=== PATIENT | female | born 1970 | race Caucasian/White ===

== ENCOUNTER → 2016-05-20 | Emergency (ER) | payer MEDICAID, OTHER ==
[~2016-05-20] VITALS: Ht 157.5 cm; Wt 87.5 kg
[~2016-05-20] MED LIST: ATEN-51 PO; CALC-67 PO; GLUC1CAP48 PO; HYDR-3498 PO; HYDR-762; IBUP800T25 PO; LOPE2CAP PO; MULT-88 PO; NAPR-260 PO; NAPR-688 PO; OMEG-135 PO; ULT50 PO; htn meds
[2016-05-20 02:51] VITALS: Ht 157.5 cm; Wt 87.5 kg
[2016-05-20 03:46] VITALS: BP 141/90; PULSE 100; RESP 18; TEMP 99.1
--- NOTE | 2016-05-20 03:52 | ERD ---
ER Documentation Chief Complaint Date/Time DATE: 05/20/16 TIME: 03:44 Chief Complaint HTN,cough,WADE HPI 45-year-old female who presents the emergency room with multiple complaints including hypertension elevated heart rate cough and headaches. The patient states that this is because of methane gas in the [place] area. The patient notes approximately 1-1/2 weeks of viral syndrome including some rhinorrhea, dry nonproductive cough. The cough is persistent. Her blood pressure is slightly elevated and she states that "my resting heart rate is elevated because of the methane gas, benzoin and toluene in the environment ". The patient denies any chest pain, headache is mild, gradual onset and frontal. ROS All systems reviewed and are negative except as per history of present illness. Medications Home Meds Active Scripts Naproxen* (Naproxen*) 500 Mg Tablet, 500 MG PO BID Y for PAIN for 7 Days, TAB Prov:JAY PALMER 05/31/15 Loperamide Hcl* (Imodium*) 2 Mg Capsule, 2 MG PO .WITH EACH DIARRHEA Y for DIARRHEA for 3 Days, CAP MAX 16 mg/day Prov:JAY PALMER 05/31/15 Naproxen* (Naprosyn*) 500 Mg Tablet, 500 MG PO BID Y for PAIN AND/OR INFLAMMATION, #30 TAB Prov:AGAPITO MONTANO PA-C 10/27/14 Hydrocodone Bit-Acetaminophen* ([place]*) 5-325 Mg Tab, 1 TAB PO Q6 Y for PAIN, # 15 TAB Prov:AGAPTIO MONTANO PA-C 10/27/14 Ibuprofen* (Motrin*) 800 Mg Tab, 800 MG PO Q8 Y for PAIN, #30 TAB Prov:CALOS VARELA 10/09/14 Tramadol HCl (Tramadol HCl) 50 Mg Tab, 50 MG PO Q6 Y for PAIN, #10 TAB Prov:CALOS VARELA 10/09/14 Reported Medications Gluc 2KCL/Chondr/Audie Hy/Hy Ac (GLUCOSAMINE & CHONDROITIN CAP) 1 Each Capsule, 1 EACH PO 01/02/14 Fish Oil* (Fish Oil*) 1,000 Mg Cap, 1000 MG PO DAILY, CAP 01/02/14 Calcium Carbonate/Vitamin D3* (Os-Link 500+D*) 1 Tab Tablet, 1 TAB PO DAILY, TAB 01/02/14 Multivits W-Ca,Fe,Other Min (Women's Daily Formula) 1 Tab Tablet, 1 TAB PO DAILY 01/02/14 Atenolol* (Atenolol*) 25 Mg Tablet, 25 MG PO DAILY, TAB 01/02/14 Hydrocodone Bit-Acetaminophen* ([place]*) 1 Tab Tablet 11/27/12 [htn meds] No Conflict Check 11/18/12 Allergies Allergies: Coded Allergies: No Known Allergy (Unverified , 10/09/14) PMhx/Soc History of Surgery: Yes () Anesthesia Reaction: No Hx Neurological Disorder: No Hx Respiratory Disorders: No Hx Cardiac Disorders: Yes (HTN) Hx Psychiatric Problems: No Hx Miscellaneous Medical Probl: Yes (GASTRITIS, BACK PAIN) Hx Alcohol Use: Yes (rarely) Hx Substance Use: No Hx Tobacco Use: Yes Smoking Status: Former smoker FmHx Family History: No diabetes Physical Exam Vitals Vital Signs Date Time Temp Pulse Resp B/P Pulse Ox O2 Delivery O2 Flow Rate FiO2 05/20/16 02:51 99.1 103 18 161/97 98 Physical Exam General: Well developed, well nourished, no acute distress Head: Normocephalic, atraumatic. Eyes: Pupils equally reactive, EOM intact ENT: Moist mucous membranes Neck: Supple, no lymphadenopathy Respiratory: Lungs clear bilaterally, no distress Cardiovascular: RRR, no murmurs, rubs, or gallops Abdominal: Soft, non-tender, non-distended, no peritoneal signs : Deferred MSK: No edema, no unilateral swelling, 5/5 strength Neurologic: Alert and oriented, moving all extremities, normal speech, no focal weakness, no cerebellar signs Skin: No rash Psych: Normal mood Procedures/MDM Patient's blood pressure was elevated (>120/80) but appears stable without evidence of hypertensive emergency or urgency. The patient was counseled about the risks of hypertension and urged to pursue outpatient monitoring and therapy within a week with their primary care physician. The patient may have a mild viral process however no evidence of pneumonia. The patient is clear lung sounds, no respiratory distress and the cough is dry and nonproductive. No fevers. No indication for chest x-ray or antibiotic. The patient did describe occasional palpitations EKG: I reviewed and interpreted a 12-lead EKG. Rhythm: Normal sinus rhythm Ectopy: None Intervals: No abnormalities ST segments: No elevations or depressions T waves: No contiguous inversions At this time I do not believe that the patient has an acute medical condition. I offered symptom control including inhaler but the patient refused. The patient blood pressure is slightly elevated needs to be followed up as an outpatient. I am concerned that the patient's symptoms may be related to a shared delusion with her partner and her about the methane gas in [place]. I strongly recommended primary care follow-up and outpatient resources were provided to the patient. The symptoms seem to be chronic in subacute and the patient does not have an acute medical depression currently. The patient is safe for discharge. Departure Diagnosis: Primary Impression: Viral illness Additional Impressions: Cough Palpitations Condition: Stable Patient Instructions: Hypertension, To Be Confirmed, Viral Syndrome (Adult) Referrals: [facility] YOU HAVE RECEIVED A MEDICAL SCREENING EXAM AND THE RESULTS INDICATE THAT YOU DO NOT HAVE A CONDITION THAT REQUIRES URGENT TREATMENT IN THE EMERGENCY DEPARTMENT. FURTHER EVALUATION AND TREATMENT OF YOUR CONDITION CAN WAIT UNTIL YOU ARE SEEN IN YOUR DOCTORS OFFICE WITHIN THE NEXT 1-2 DAYS. IT IS YOUR RESPONSIBILITY TO MAKE AN APPOINTMENT FOR [facility]. IF YOU HAVE A PRIMARY DOCTOR --you should call your primary doctor and schedule an appointment IF YOU DO NOT HAVE A PRIMARY DOCTOR YOU CAN CALL OUR PHYSICIAN REFERRAL HOTLINE AT IF YOU CAN NOT AFFORD TO SEE A PHYSICIAN YOU CAN CHOSE FROM THE FOLLOWING [facility] [address] [facility]. [facility] [address] [facility] [facility] [facility] [facility] [address] [facility] [facility] [address] [facility] [facility] [address] [facility]. [facility]. [address] [facility] YOU HAVE RECEIVED A MEDICAL SCREENING EXAM AND THE RESULTS INDICATE THAT YOU DO NOT HAVE A CONDITION THAT REQUIRES URGENT TREATMENT IN THE EMERGENCY DEPARTMENT. FURTHER EVALUATION AND TREATMENT OF YOUR CONDITION CAN WAIT UNTIL YOU ARE SEEN IN YOUR DOCTORS OFFICE WITHIN THE NEXT 1-2 DAYS. IT IS YOUR RESPONSIBILITY TO MAKE AN APPOINTMENT FOR [facility] CARE. IF YOU HAVE A PRIMARY DOCTOR --you should call your primary doctor and schedule and appointment IF YOU DO NOT HAVE A PRIMARY DOCTOR YOU CAN CALL OUR PHYSICIAN REFERRAL HOTLINE AT . IF YOU CAN NOT AFFORD TO SEE A PHYSICIAN YOU CAN CHOSE FROM THE FOLLOWING [facility] INSTITUTIONS: [facility] [address] [place] [address] [facility] [address] [place] [address] [facility] [address] [place] [address] Additional Instructions: Call your primary care doctor TOMORROW for an appointment during the next 1 WEEK.Tell the medical secretary that you were referred from this facility.See the doctor sooner or return here if your condition worsens before your appointment time. RICO CUMMINGS MD May 20, 2016 03:52
== END | disposition home or self-care (01) ==
LOC: E/R 02:45
DX: B34.9 Viral infection, unspecified (principal); R40.2252 Coma scale, best verbal response, oriented, at arrival to emergency department; R00.2 Palpitations; I10 Essential (primary) hypertension; R40.2362 Coma scale, best motor response, obeys commands, at arrival to emergency department; R40.2142 Coma scale, eyes open, spontaneous, at arrival to emergency department; Z87.891 Personal history of nicotine dependence
CPT/HCPCS: 93005; Z7502

== ENCOUNTER 2017-05-09 00:38 | Emergency (ER) | END 2017-05-09 05:27 | disposition home or self-care (01) ==

== ENCOUNTER 2017-08-31 00:33 | Emergency (ER) | END 2017-08-31 04:40 | disposition home or self-care (01) ==

== ENCOUNTER 2018-05-18 16:49 | Emergency (ER) | payer OTHER ==
[~2018-05-18] VITALS: Ht 165.1 cm; Wt 88.5 kg
[~2018-05-18 16:49] MED LIST changes: +HYDR-3980 PO; +HYDR-4011 PO; +IBUP-1542 PO; -IBUP800T25 PO; +IBUP800T48 PO; +MECL12.574 PO; -NAPR-260 PO; +NAPR-985 PO; +TRAM50TA2 PO; -ULT50 PO
[2018-05-18 16:54] VITALS: Ht 165.1 cm; Wt 88.5 kg
[2018-05-18] MEDS ORDERED: METO-319 PO (18:39)
[2018-05-18] MEDS ORDERED: TRAZ-150 PO (18:39)
[2018-05-18] MEDS ORDERED: AMLO-147 PO (18:40)
[2018-05-18] MEDS ORDERED: DULO30CA47 PO (18:40)
[2018-05-18] MEDS ORDERED: ALBU18HF INHALATION (18:41)
[2018-05-18] MEDS ORDERED: MELO15TA30 PO (18:41)
[2018-05-18] MEDS ORDERED: FLUT16SP17 NASAL (18:42)
[2018-05-18] MEDS ORDERED: CYCL10TA7 PO (18:42)
[2018-05-18] MEDS ORDERED: TRAM50TA PO (18:43)
[2018-05-18] MEDS ORDERED: MECL12.574 PO (18:43)
[2018-05-18] MEDS ORDERED: SOD CHLORIDE 0.9% 1,000 ML IV STA (19:50)
[2018-05-18] MEDS ORDERED: ONDANSETRON 4 MG INJ IV STA (19:50)
[2018-05-18] MEDS ORDERED: MECLIZINE 12.5 MG TAB PO ONE (20:00)
--- NOTE | 2018-05-18 22:27 | ERD ---
ER Documentation Chief Complaint Chief Complaint BIT LIP TODAY. DOES NOT REMEMBER INCIDENT. FAMILY STATES RICCO TEJADA This is a 47-year-old female who presents to the emergency department after she indicates she had a sudden onset of dizziness. The patient indicates she is been undergoing a significant amount of stress and has not been sleeping for several days. Contrary to the triage note the patient did not experience any seizure activity. She stated she felt lightheaded and dizzy at and had an episode where she almost passed out. She stated at that time she bit her lip and grasped a piece of furniture that prevented her from falling over. She immediately sat down and her symptoms improved. She denied headache. She had no fevers or shaking or chills. She denies any neck pain. The patient indicates that she has for several months been having a nonproductive cough she lives in [place] where she stated there was toxic fumes which she ingested. Since that time she has been utilizing an inhaler. She has no hemoptysis no hematemesis no melanotic stools ROS All systems reviewed and are negative except as per history of present illness. Medications Home Meds Active Scripts Hydrocodone/Acetaminophen ([place] 5-325 Tablet) 1 Each Tablet, 1 TAB PO Q6H PRN for SEVERE PAIN LEVEL 7-10, #20 TAB Prov:GERONIMO CORRAL ACID ETCH OPERATOR 05/09/17 Ibuprofen* (Motrin*) 600 Mg Tab, 600 MG PO Q6H PRN for PAIN AND OR ELEVATED TEMP, #30 TAB Prov:GERONIMO CORRAL ACID ETCH OPERATOR 05/09/17 Reported Medications Meclizine Hcl* (Antivert*) 12.5 Mg Tab, 12.5 MG PO NEEDED, #30 TAB 05/18/18 Tramadol Hcl* (Ultram*) 50 Mg Tablet, 50 MG PO NEEDED PRN for PAIN, TAB 05/18/18 Cyclobenzaprine Hcl* (Cyclobenzaprine Hcl*) 10 Mg Tablet, 10 MG PO TID PRN for NEEDED, #90 TAB 05/18/18 Fluticasone Propionate* (Fluticasone Propionate* Nasal) 50 Mcg/[place] - 16 Gm [place].susp, 1 SPRAY NASAL DAILY, #1 BOTTLE TO EACH NOSTRIL 05/18/18 Albuterol Sulfate* (Ventolin HFA*) 18 Gm Hfa.aer.ad, 2 PUFF INHALATION Q4H, #1 INHALER 05/18/18 Meloxicam* (Mobic*) 15 Mg Tablet, 15 MG PO DAILY PRN for NEEDED, #30 TAB 05/18/18 Amlodipine Besylate* (Amlodipine Besylate*) 10 Mg Tablet, 10 MG PO DAILY, #30 TAB 05/18/18 Duloxetine Hcl* (Duloxetine Hcl*) 30 Mg Capsule.dr, 30 MG PO QPM, #30 CAP 05/18/18 Trazodone Hcl* (Desyrel*) 100 Mg Tab, 100 MG PO QAM, #30 TAB 05/18/18 Metoprolol Succinate* (Toprol XL*) 50 Mg Tab.er.24h, 50 MG PO DAILY, #30 TAB 05/18/18 Discontinued Reported Medications Gluc 2KCL/Chondr/Audie Hy/Hy Ac (GLUCOSAMINE & CHONDROITIN CAP) 1 Each Capsule, 1 EACH PO 01/02/14 Fish Oil* (Fish Oil*) 1,000 Mg Cap, 1000 MG PO DAILY, CAP 01/02/14 Calcium Carbonate/Vitamin D3* (Os-Link 500+D*) 1 Tab Tablet, 1 TAB PO DAILY, TAB 01/02/14 Multivits W-Ca,Fe,Other Min (Women's Daily Formula) 1 Tab Tablet, 1 TAB PO DAILY 01/02/14 Atenolol* (Atenolol*) 25 Mg Tablet, 25 MG PO DAILY, TAB 01/02/14 Hydrocodone Bit-Acetaminophen* ([place]*) 1 Tab Tablet 11/27/12 [htn meds] No Conflict Check 11/18/12 Discontinued Scripts Hydrocodone/Acetaminophen ([place] 10-325 Tablet) 1 Each Tablet, 1 TAB PO Q6H PRN for PAIN, #20 TAB Prov:CHANEL PUGA S. 08/31/17 Meclizine Hcl* (Antivert*) 12.5 Mg Tab, 12.5 MG PO Q6H PRN for DIZZINESS, #20 TAB Prov:CHANEL PUGA S. 08/31/17 Naproxen* (Naproxen*) 500 Mg Tablet, 500 MG PO BID PRN for PAIN for 7 Days, TAB Prov:JAY PALMER 05/31/15 Loperamide Hcl* (Imodium*) 2 Mg Capsule, 2 MG PO .WITH EACH DIARRHEA PRN for DIARRHEA for 3 Days, CAP MAX 16 mg/day Prov:JAY PALMER 05/31/15 Naproxen* (Naprosyn*) 500 Mg Tablet, 500 MG PO BID PRN for PAIN AND/OR INFLAMMATION, #30 TAB Prov:AGAPIOT MONTANO PA-C 10/27/14 Hydrocodone Bit-Acetaminophen* ([place]*) 5-325 Mg Tab, 1 TAB PO Q6 PRN for PAIN, #15 TAB Prov:AGAPITO MONTANO PA-C 10/27/14 Ibuprofen* (Motrin*) 800 Mg Tab, 800 MG PO Q8 PRN for PAIN, #30 TAB Prov:CALOS VARELA 10/09/14 Tramadol HCl (Tramadol HCl) 50 Mg Tab, 50 MG PO Q6 PRN for PAIN, #10 TAB Prov:CALOS VARELA 10/09/14 Allergies Allergies: Coded Allergies: No Known Allergy (Unverified , 05/18/18) PMhx/Soc History of Surgery: Yes ( X 1) Anesthesia Reaction: No Hx Neurological Disorder: No Hx Respiratory Disorders: No Hx Cardiac Disorders: No Hx Psychiatric Problems: No Hx Miscellaneous Medical Probl: Yes (HYPERGLCEMIA, ARTHRITIS) Hx Alcohol Use: Yes (SOCIALLY) Hx Substance Use: No Smoking Status: Never smoker Physical Exam Vitals Vital Signs Date Temp Pulse Resp B/P (MAP) Pulse Ox O2 O2 Flow FiO2 Time Delivery Rate 05/18/18 98.0 99 19 117/78 96 Nasal 3.0 19:37 (91) Cannula 05/18/18 97.9 79 19 130/81 96 Room Air 17:44 (97) 05/18/18 97.9 126 18 131/73 95 16:54 (92) Physical Exam Constitutional:Well-developed. Well-nourished. HEENT:Normocephalic. Atraumatic.Pupils were equal round reactive to light. Moist mucous membranes.No tonsillar exudates. No nasal septal hematoma. No hemotympanum. Swelling of the left lower lip. No avulsions or fractures of the teeth. No midface mobility. Neck: No nuchal rigidity. No lymphadenopathy. No posterior cervical spine tenderness or step-offs. Respiratory: Not using accessory muscles of respiration.Lungs were clear to auscultation bilaterally. No rhonchi. No rales. No wheezing. Cardiovascular: Regular rate regular rhythm.No murmurs. No rubs were appreciated.S1, S2 normal. Distal pulses are palpable 2+ bilaterally. GI: Abdomen was soft. Nontender. Non Distended. No pulsatile abdominal masses or bruits. No rebound. No guarding. Bowel sounds were present and normal. Muscle skeletal: Full range of motion of both the upper and lower extremities bilaterally.Normal muscle tone.No assymetrical calf tenderness or swelling. Skin: No petechia, no purpura. No lesions on the palms or the soles of the feet. No maculopapular rash. NEURO: Patient was alert, awake, orientated x3.No facial droop. Gait observed and normal with no ataxia.Speech had regular rate and rhythm. No focal neurological deficits. Result Diagram: 05/18/18 1755 05/18/18 1755 Results 24 hrs Laboratory Tests Test 05/18/18 17:55 White Blood Count 11.0 10^3/ul Red Blood Count 4.43 10^6/ul Hemoglobin 13.2 g/dl Hematocrit 38.6 % Mean Corpuscular Volume 87.1 fl Mean Corpuscular Hemoglobin 29.8 pg Mean Corpuscular Hemoglobin Concent 34.2 g/dl Red Cell Distribution Width 12.3 % Platelet Count 341 10^3/UL Mean Platelet Volume 8.2 fl Immature Granulocytes % 0.400 % Neutrophils % 57.4 % Lymphocytes % 29.8 % Monocytes % 9.0 % Eosinophils % 3.0 % Basophils % 0.4 % Nucleated Red Blood Cells % 0.0 /100WBC Immature Granulocytes # 0.040 10^3/ul Neutrophils # 6.3 10^3/ul Lymphocytes # 3.3 10^3/ul Monocytes # 1.0 10^3/ul Eosinophils # 0.3 10^3/ul Basophils # 0.0 10^3/ul Nucleated Red Blood Cells # 0.0 10^3/ul Prothrombin Time 12.5 Sec Prothrombin Time Ratio 1.0 INR International Normalized Ratio 0.92 Activated Partial Thromboplast Time 33.9 Sec Sodium Level 135 mmol/L Potassium Level 4.0 mmol/L Chloride Level 100 mmol/L Carbon Dioxide Level 27 mmol/L Anion Gap 8 Blood Urea Nitrogen 17 mg/dl Creatinine 0.84 mg/dl Est Glomerular Filtrat Rate mL/min > 60 mL/min Glucose Level 106 mg/dl Calcium Level 9.3 mg/dl Total Bilirubin 0.0 mg/dl Direct Bilirubin 0.00 mg/dl Indirect Bilirubin 0.0 mg/dl Aspartate Amino Transf (AST/SGOT) 26 IU/L Alanine Aminotransferase (ALT/SGPT) 19 IU/L Alkaline Phosphatase 102 IU/L Troponin I < 0.012 ng/ml Total Protein 7.6 g/dl Albumin 4.1 g/dl Globulin 3.50 g/dl Albumin/Globulin Ratio 1.17 Salicylates Level < 1.0 mg/dl Acetaminophen Level < 10.0 ug/ml Ethyl Alcohol Level < 10.0 mg/dl Current Medications Medications Dose Sig/Lucy Start Time Status Last (Trade) Ordered Route PRN Stop Time Admin Dose Reason Admin Sodium 1,000 ml @ Q1H STAT 05/18/18 DC 05/18/18 Chloride 1,000 mls/hr IV 19:50 20:03 05/18/18 20:49 Ondansetron 4 mg ONCE STAT 05/18/18 DC 05/18/18 HCl (Zofran IV 19:50 20:04 Inj) 05/18/18 19:53 Meclizine 25 mg ONCE ONCE 05/18/18 DC 05/18/18 HCl PO 20:00 20:04 (Antivert) 05/18/18 20:01 Procedures/MDM The patient presented to the emergency department with symptoms suggestive of a near syncope episode. The differential diagnosis of syncope is vast but my workup considered common benign disorders to life-threatening processes. Therefore my differential diagnosis included but was not limited to reflex- mediated syncope such as vasovagal or carotid sinus syncope from coughing, sneezing, micturition, or GI stimulation (eg, defecation). Other etiologies in my workup included orthostatic hypotension which could cause syncope from an abrupt drop in venous return to heart from volume depletion. An EKG and cardiac enzymes were obtained to rule out cardiac arrhythmias or ischemia. Cardiopulmonary disease such as valvular disease, hypertrophic cardiomyopathy, pericardial tamponade, or pulmonary embolism were considered as a factor causing the patients syncope episode. The patient had no difference in blood pressure in both arms that could suggest aortic dissection or subclavian steal syndrome. Rectal exam was negative for fecal occult blood that could suggest GI bleeding. Ancillary laboratory work was obtained to evaluate for metabolic or electrolyte abnormalities. The patient had no witnessed brief tonic movements that could suggest postictal confusion. The patient was placed on a cardiac nurse practitioner, continuous pulse oximetry and IV access established by nursing staff. The patient was given a liter bolus of normal saline. I obtained a CT scan of the patient's head and there is no intracerebral hemorrhage mass-effect or midline shift. The patient has had a cough for several months and therefore obtained a chest radiograph which showed no infiltrates no pneumothorax or pleural effusions. The patient had no severe electrolyte abnormalities. 12 Lead EKG tracing ordered and reviewed by myself showed: Normal sinus rhythm of [] bpm and no arrhythmia. RI interval normal. QRS duration normal. No ST segment elevation No ST segment depression. No changes consistent with acute ischemia. Observation Note: Time: 4 hours Family Hx: No Hypertension Evaluation: Multiple exams showed improving symptoms and no evidence of worse ariel of her symptoms. I did feel her symptoms could be result of generalized weakness from insomnia. The patient felt significant improvement of her symptoms after she received a liter bolus of normal saline. The patient was discharged home in fair condition. They were instructed to return to the emergency department at any time if there was any worsening of their condition. The patient stated they would follow up with their PCP in the next 24-48 hours to initiate a suitable medication regimen under the care of their PCP as well as to allow their PCP to monitor any drug reactions. The patie nt was discharged home with prescriptions after they gave informed consent to the new medication. They were also fully informed by myself on the adverse effects and adverse drug interactions in order to provide adequate safeguards to prevent possible adverse reactions to medications. Departure Diagnosis: Primary Impression: Near syncope Additional Impression: Dizziness Condition: Fair ARGENTINA REYNA MD May 18, 2018 22:24
[2018-05-18] MEDS ORDERED: ONDA4TAB14 PO (22:29)
[2018-05-18] MEDS ORDERED: KETOROLAC 30 MG INJ IV STA (22:47)
[2018-05-18 23:14] VITALS: BP 111/78; PULSE 92; RESP 16
== END 2018-05-18 23:17 | disposition home or self-care (01) ==
LOC: E/R 16:49
DX: R42 Dizziness and giddiness (principal); R55 Syncope and collapse
CPT/HCPCS: 36415; 70450; 71045; 80053; 80306; 80307; 81001; 84484; 85025; 85610; 85730; 93005; 96361; 96374; 96375; J1885; J2405; J7030; Z7502; Z7610